=== PATIENT | male | born 1985 | race Caucasian/White ===

== ENCOUNTER 2019-05-27 09:30 | Emergency (ER) | payer OTHER ==
[2019-05-27 09:47] VITALS: BP 141/60
[2019-05-27] MEDS ORDERED: IBUPROFEN 800 MG TABLET PO ONE (09:49)
[2019-05-27] MEDS ORDERED: ALBUTEROL SULFATE 0.083% NEB 2.5 MG/3 ML AMPUL NEB ONE (09:53)
--- NOTE | 2019-05-27 09:53 | ER Document Report ---
ED General - General Chief Complaint: Cough Stated Complaint: COUGH,CONGESTION,HEADACHE Time Seen by Provider: 05/27/19 09:48 TRAVEL OUTSIDE OF THE [place] IN LAST 30 DAYS: No - HPI Notes: 33-year-old male to the emergency department with complaints of a productive cough, body aches, and fevers for the past 4 days. He states that he is bringing up yellow sputum. He states that he is felt febrile at home but has not measured a temperature. He is been taking NyQuil and DayQuil without any relief. He states that every time he coughs he has a headache. He denies any nasal congestion, ear pain, sore throat. He is a smoker. He denies any known sick contacts. - Related Data Allergies/Adverse Reactions: No Known Allergies Allergy (Verified 05/27/19 09:31) Past Medical History - General Information source: Patient, Relative - Social History Smoking Status: Current Every Day Smoker Frequency of alcohol use: Occasional Drug Abuse: None Family History: Reviewed & Not Pertinent Review of Systems - Review of Systems Constitutional: Chills, Fever, Malaise. denies: Diaphoresis EENT: denies: Ear pain, Nose congestion, Sinus pressure, Throat pain Cardiovascular: denies: Chest pain, Palpitations, Heart racing, Dyspnea, Syncope, Dizziness, Lightheaded Respiratory: Cough, Sputum. denies: Short of breath Gastrointestinal: denies: Abdominal pain, Diarrhea, Nausea, Vomiting Genitourinary: No symptoms reported Skin: No symptoms reported Neurological/Psychological: Headaches -: Yes All other systems reviewed and negative Physical Exam - Vital signs Vitals: Temp Pulse Resp BP Pulse Ox 100.1 F 102 H 18 141/60 H 94 05/27/19 09:46 05/27/19 09:46 05/27/19 09:46 05/27/19 09:46 05/27/19 09:46 Interpretation: Normal - General General appearance: Alert In distress: None - HEENT Head: Normocephalic, Atraumatic Eyes: Normal Pupils: PERRL Ears: Normal External canal: Normal Tympanic membrane: Normal Sinus: Normal Nasal: Normal Mouth/Lips: Normal Mucous membranes: Normal Pharynx: Normal. No: Erythema, Exudate, Peritonsillar abscess, Post nasal drainage, Retropharyngeal abscess, Tonsillar hypertrophy, Uvular edema, Potential airway comprom. Neck: Normal, Supple. No: Lymphadenopathy, Meningismus - Respiratory Respiratory status: No respiratory distress Chest status: Nontender Breath sounds: Decreased air movement - Decreased air movement throughout with noted productive cough when trying to take a big breath. Patient can speak in full sentences. He is not in respiratory distress. He is not tripoding., Productive cough. No: Rales, Rhonchi, Stridor, Wheezing Chest palpation: Normal, Other - Cardiovascular Rhythm: Regular Heart sounds: Normal auscultation Murmur: No - Back Back: Normal, Nontender. No: CVA tenderness - Neurological Neuro grossly intact: Yes Cognition: Normal Orientation: AAOx4 Bal[place]zar Coma Scale Eye Opening: Spontaneous [place] Coma Scale Verbal: Oriented [place] Coma Scale Motor: Obeys Commands [place] Coma Scale Total: 15 Speech: Normal Motor strength normal: LUE, RUE, LLE, RLE Sensory: Normal - Psychological Associated symptoms: Normal affect, Normal mood - Skin Skin Temperature: Warm Skin Moisture: Dry Skin Color: Normal Course - Re-evaluation Re-evalutation: 05/27/19 09:56 Patient with upper respiratory symptoms with chills, subjective fevers, and productive cough. Will send for chest x-ray to evaluate for pneumonia. We will also give breathing treatment and Motrin here today. Noted temperature of 100.1 and slight tachycardia which could signify that patient is going to develop a true fever. Patient and agree with the plan. 05/27/19 10:37 Impression: Lingular pneumonia. Patient had minimal relief with albuterol treatment. He has had breaking of his fever with Motrin. Discussed results of chest x-ray with patient and and will start on doxycycline as well as Medrol Dosepak, cough medicine, albuterol. Encouraged to return if he has any worsening symptoms such as shortness of breath, inability to keep medicines down, chest pain or any other concerns. I have encouraged him to rest and push fluids. Patient agrees with the plan. 05/27/19 10:38 Chest X-Ray 05/27/19 09:49 IMPRESSION: Lingular infiltrate consistent with pneumonia. - Vital Signs Vital signs: Temp Pulse Resp BP Pulse Ox 100.1 F 102 H 18 141/60 H 94 05/27/19 09:46 05/27/19 09:46 05/27/19 09:46 05/27/19 09:46 05/27/19 09:46 - Diagnostic Test Radiology reviewed: Image reviewed, Reports reviewed Discharge - Discharge Clinical Impression: Cough, Elevated blood pressure reading Pneumonia Qualifiers: Pneumonia type: due to unspecified organism Laterality: left Lung location: unspecified part of lung Qualified Code(s): J18.9 - Pneumonia, unspecified organism Condition: Stable Disposition: HOME, SELF-CARE Instructions: Pneumonia ([facility]) Additional Instructions: PUSH FLUIDS. REST AT HOME. TAKE ALL MEDICINES PRESCRIBED. STOP OVER THE COUNTER MEDICINES, EXCEPT USE TYLENOL AND MOTRIN FOR FEVER CONTROL. RETURN IF WORSENING SYMPTOMS SUCH SHORTNESS OF BREATH, INABILITY TO KEEP MEDICINES DOWN, OR ANY OTHER CONCERNS. Prescriptions: Albuterol Sulfate [Albuterol Sulfate Hfa] 1 - 2 puff IH Q4H PRN #1 [id number] PRN Reason: Shortness Of Breath Codeine Phosphate/Guaifenesin [Cheratussin AC Syrup] 10 ml PO Q6H #120 ml Doxycycline Hyclate 100 mg PO BID #20 capsule Methylprednisolone [Medrol Dosepack (4 mg/Tab) 21 Tab/Dosepak] 4 mg PO ASDIR PRN #21 [id number] PRN Reason: Forms: Return to Work Referrals: [facility] [Provider Group] - Follow up in 1 week
--- NOTE | 2019-05-27 10:28 | RADIOLOGY REPORT (SQ) ---
EXAM DESCRIPTION: CHEST 2 VIEWS COMPLETED DATE/TIME: 05/27/2019 10:20 am REASON FOR STUDY: cough, fever COMPARISON: None. EXAM PARAMETERS: NUMBER OF VIEWS: two views TECHNIQUE: Digital Frontal and Lateral radiographic views of the chest acquired. RADIATION DOSE: NA LIMITATIONS: none FINDINGS: LUNGS AND PLEURA: Focal lingular airspace disease consistent with pneumonia. No effusions . No pneumothorax. MEDIASTINUM AND HILAR STRUCTURES: No masses or contour abnormalities. HEART AND VASCULAR STRUCTURES: Heart normal size. No evidence for failure. BONES: No acute findings. HARDWARE: None in the chest. OTHER: No other significant finding. IMPRESSION: Lingular infiltrate consistent with pneumonia. TECHNICAL DOCUMENTATION: JOB ID: [id number] [employer]- All Rights Reserved Reading location - IP/workstation name: [email or web address]
== END 2019-05-27 11:03 | disposition home or self-care (01) ==
LOC: ER 09:30
DX: J18.9 Pneumonia, unspecified organism (principal); R51 Headache; R03.0 Elevated blood-pressure reading, without diagnosis of hypertension; R50.9 Fever, unspecified; F17.200 Nicotine dependence, unspecified, uncomplicated
CPT/HCPCS: 71046; 99283